=== PATIENT | female | born 1935 | race Caucasian/White ===

== ENCOUNTER 2021-08-15 11:35 | Inpatient (IN) | payer MEDICARE, OTHER ==
[~2021-08-15] VITALS: Ht 162.6 cm; Wt 85.7 kg
--- NOTE | 2021-08-16 18:30 | NUR ---
ADMITTED THE PATIENT VIA AMBULANCE ON A GURNEY FROM [facility]. MALAGASY SPEAKING, FAMILY AT BEDSIDE. BODY ASSESSMENT DONE, PHOTO IN THE CHART. INCISION SITE INTACT, NO BLEEDING IDENTIFIED. BELONGINGS LIST DONE AND SIGNED. ORIENTED PATIENT TO THE ROOM. NO DISTRESS IDENTIFIED. MD MADE AWARE OF THE ADMISSION. WILL CONTINUE TO MONITOR PATIENT.
[2021-08-16 18:38] VITALS: BP 169/75
[2021-08-16] MEDS ORDERED: Z GUARD REMEDY PASTE 57 GM TUBE TOP PRN (19:00)
[2021-08-16] MEDS ORDERED: CLOT30CR24 TP (19:49)
[2021-08-16] MEDS ORDERED: ENOX30DI5 SQ (19:49)
[2021-08-16] MEDS ORDERED: TRIA60LO14 TP (19:49)
[2021-08-16] MEDS ORDERED: NEBI5TAB8 PO (19:49)
[2021-08-16] MEDS ORDERED: IBUP-1953 PO (19:49)
[2021-08-16] MEDS ORDERED: ASPI81TA31 PO (19:49)
[2021-08-16] MEDS ORDERED: TRAM50TA2 PO (19:49)
[2021-08-16] MEDS ORDERED: ATOR20TA PO (19:49)
[2021-08-16] MEDS ORDERED: GABA-532 PO (19:49)
[2021-08-16] MEDS ORDERED: SITA1TAB2 PO (19:49)
[2021-08-16] MEDS ORDERED: FERR325T28 PO (19:49)
[2021-08-16] MEDS ORDERED: SENN-18 PO (19:49)
[2021-08-16] MEDS ORDERED: FURO-151 PO (19:49)
[2021-08-16 20:00] VITALS: BP 166/52
[2021-08-17 04:00] VITALS: BP 141/60
--- NOTE | 2021-08-17 06:29 | NUR ---
Patient denies pain during the shift. no concerns identified. All due meds given. kept call light within reach. Frequent checks done. Will endorse to the next shift for continuity of care.
[2021-08-17 07:30] VITALS: BP 129/59
[2021-08-17] MEDS: OXYCODONE/APAP 5-325 MG TABLET PO PRN (09:24)
--- NOTE | 2021-08-17 10:52 | NUR ---
WOUND CARE CONSULT: PT PRESENTS WITH MULTIPLE SKIN ISSUES, PRESENT ON ADMISSION INCLUDING LEFT HEEL INTACT DEEP TISSUE INJURY, SACRAL INTACT DEEP TISSUE INJURY, RT LATERAL FOOT DRY WOUND AND RASH WITH OPEN SKIN TO ABDOMINAL/GROIN FOLDS, RASH/REDNESS TO RT BREASTFOLD. RECOMMENDATIONS MADE FOR SKIN PROTECTION AND WOUND CARE. DISCUSSED WITH NURSING STAFF. DEFER TO DPM (DR NIETO) FOR LOWER EXTREMITIES. MD IN AGREEMENT WITH PLAN OF CARE. Addendum: 08/17/21 at 1054 by PRATEEK GUZMAN RN Amended: Links added. Addendum: 08/17/21 at 1102 by PRATEEK GUZMAN RN PER PT'S DAUGHTER, PT HAD SACRAL DTI BEFORE ADMISSION TO [facility] FOR HIP SURGERY. Addendum: 08/17/21 at 1108 by PRATEEK GUZMAN RN FIRST STEP LOW AIRLOSS MATTRESS IS ON ORDER.
--- NOTE | 2021-08-17 15:33 | NUR ---
INTERDISCIPLINARY TEAM CONFERENCE
[2021-08-17 15:53] VITALS: BP 157/65
[2021-08-17] MEDS ORDERED: IBUPROFEN 200 MG TABLET PO PRN (16:00)
[2021-08-17] MEDS ORDERED: TRAMADOL HCL 50 MG TABLET PO PRN (16:00)
[2021-08-17] MEDS ORDERED: DEXTROSE 50% 50 ML DISP.SYRIN IV PRN (16:15)
[2021-08-17] MEDS ORDERED: TRIA15CR2 TP ×2 (16:18→16:24)
[2021-08-17] MEDS: BLOOD SUGAR DIAGNOSTIC 1 EACH STRIP VI SCH ×2 (16:30→20:31)
[2021-08-17] MEDS ORDERED: TRIAMCINOLONE ACET 0.1% CREAM 15 GM TUBE TOP PRN (16:45)
[2021-08-17] MEDS: GABAPENTIN 100 MG CAPSULE PO SCH (18:29)
[2021-08-17] MEDS: INSULIN REGULAR, HUMAN 300 UNIT/3 ML VIAL SQ PRN (18:31)
[2021-08-17] MEDS: CLOTRIMAZOLE 1% CREAM 30 GM TUBE TOP SCH (18:33)
[2021-08-17] MEDS: CLOTRIMAZOLE 1% CREAM 30 GM TUBE TP SCH (18:33)
[2021-08-17] MEDS: METOPROLOL TARTRATE 25 MG TABLET PO SCH (18:46)
--- NOTE | 2021-08-17 19:23 | NUR ---
Pt is a/o x 4 Luxembourgish speaking only. Pt is on room air saturating at 98%. She is bedbound/ wheel chair bound. Pt has webster catheter, incontinent x 2 with diaper. last BM was 2 days ago. Maximum assistance with transfer from bed to wheel chair. Non weight bearing on right leg due to s/p R intertrochanteric fracture. Consent signed by son and translated to pt for wound debridement. Pt last vitals: BP 162/ 75 pre metoprolol administration, 98% room air, rr 12 HR 90. Will endorse pt to shift nurse manager.
[2021-08-17 20:00] VITALS: BP 162/64
[2021-08-17] MEDS: ATORVASTATIN 20 MG TABLET PO SCH (20:24)
[2021-08-17] MEDS: ENOXAPARIN SODIUM 30 MG/0.3 ML DISP.SYRIN SQ SCH (20:28)
[2021-08-18 04:00] VITALS: BP 134/51
[2021-08-18] MEDS: BLOOD SUGAR DIAGNOSTIC 1 EACH STRIP VI SCH ×4 (05:34→21:26)
--- NOTE | 2021-08-18 06:29 | NUR ---
Slept well. No complaint presented all night. No significant event reported. Continue current plan of care. VS stable.
[2021-08-18 07:48] VITALS: BP 156/67
[2021-08-18] MEDS: GABAPENTIN 100 MG CAPSULE PO SCH ×2 (08:57→18:32)
[2021-08-18] MEDS: ASPIRIN 81 MG TAB.CHEW PO SCH (08:57)
[2021-08-18] MEDS: FERROUS SULFATE 325 MG TABEC PO SCH (08:57)
[2021-08-18] MEDS: OXYCODONE/APAP 5-325 MG TABLET PO PRN (08:58)
[2021-08-18] MEDS: FUROSEMIDE 40 MG TABLET PO SCH (08:58)
[2021-08-18] MEDS: LINAGLIPTIN 5 MG TABLET PO SCH (08:58)
[2021-08-18] MEDS: CLOTRIMAZOLE 1% CREAM 30 GM TUBE TOP SCH ×2 (08:58→17:00)
[2021-08-18] MEDS: CLOTRIMAZOLE 1% CREAM 30 GM TUBE TP SCH ×2 (08:58→17:00)
[2021-08-18] MEDS ORDERED: Medication Not On Formulary EA (Nebivolol Hcl (Bystolic) 5 MG) PO SCH (09:00)
[2021-08-18] MEDS ORDERED: METFORMIN HCL 500 MG TABLET PO SCH (09:00)
[2021-08-18 09:04] VITALS: BP 158/65
[2021-08-18] MEDS: METOPROLOL TARTRATE 25 MG TABLET PO SCH ×2 (09:04→18:34)
[2021-08-18] MEDS: INSULIN REGULAR, HUMAN 300 UNIT/3 ML VIAL SQ PRN (12:03)
[2021-08-18 13:02] LABS: CREATININE 1.3 mg/dL (0.6-1.3); POTASSIUM 4.4 mmol/L (3.5-5.1)
[2021-08-18 13:11] LABS: HEMATOCRIT 30.2 % (31.2-41.9); MEAN CORPUSCULAR HEMOGLOBIN 28.3 uug (24.7-32.8); MEAN CORPUSCULAR VOLUME 86.3 fL (75.5-95.3); PLATELET COUNT (AUTO) 215 K/uL (179-408)
[2021-08-18 15:21] VITALS: BP 133/64
[2021-08-18] MEDS: METFORMIN HCL 500 MG TABLET PO SCH (18:32)
--- NOTE | 2021-08-18 19:10 | NUR ---
Pt is a/o x 4, danish speaking only. She is stable on room air, no complaint of pain, discomfort, no signs of acute distress. Pt is cooperative with care and medications. Pt is currently sitting on wheelchair. Miramontes catheter draining well, no BM during shift. Family currently at bedside. DVT pump delivered, air mattress delivered, will put in place. Comfort measures provided, call light in reach. Will endorse pt to ship scraper RN.
--- NOTE | 2021-08-18 19:25 | NUR ---
Received patient sitting on wheelchair. AOx4. Kittitian speaking. Daughter at bedside. No acute distress noted at this time. Transferred patient from wheelchair to bed via 1 person assist. Pt currently on air mattress. ordered for DVT pumps, however, no machine is available at this time. Will call central supply. Safety and comfort measures initiated. Call light button and bedside table within reach, bed on lock and side rails x2 up. Will continue to monitor.
[2021-08-18 20:00] VITALS: BP 131/50
[2021-08-18] MEDS: ATORVASTATIN 20 MG TABLET PO SCH (21:08)
[2021-08-18] MEDS: ENOXAPARIN SODIUM 30 MG/0.3 ML DISP.SYRIN SQ SCH (21:11)
--- NOTE | 2021-08-18 21:30 | NUR ---
Accuchek taken, BS of 105mg/dl, insulin not needed.
[2021-08-19 04:00] VITALS: BP 146/55
[2021-08-19] MEDS: BLOOD SUGAR DIAGNOSTIC 1 EACH STRIP VI SCH ×4 (07:10→20:26)
--- NOTE | 2021-08-19 07:39 | NUR ---
Patient slept through the night. No acute distress noted at this time. All due medications were given as ordered. Accuchek done, BS of 111mg/dl. Breast fold rash and Abdominal fold cleansed with soap and water and kept dry. Sacrum and heels cleansed and covered with mepilex. Safety and comfort measures maintained. Will endorse to day shift nurse.\
[2021-08-19 07:44] VITALS: BP 162/60
[2021-08-19] MEDS: OXYCODONE/APAP 5-325 MG TABLET PO PRN (08:51)
[2021-08-19] MEDS: LINAGLIPTIN 5 MG TABLET PO SCH (08:51)
[2021-08-19] MEDS: GABAPENTIN 100 MG CAPSULE PO SCH ×2 (08:51→18:06)
[2021-08-19] MEDS: METFORMIN HCL 500 MG TABLET PO SCH ×2 (08:51→18:05)
[2021-08-19] MEDS: FERROUS SULFATE 325 MG TABEC PO SCH (08:51)
[2021-08-19] MEDS: FUROSEMIDE 40 MG TABLET PO SCH (08:52)
[2021-08-19] MEDS: ASPIRIN 81 MG TAB.CHEW PO SCH (08:52)
[2021-08-19] MEDS: METOPROLOL TARTRATE 25 MG TABLET PO SCH ×2 (08:53→18:06)
[2021-08-19] MEDS: CLOTRIMAZOLE 1% CREAM 30 GM TUBE TOP SCH ×2 (08:58→18:07)
[2021-08-19] MEDS ORDERED: levoFLOXacin 500 MG TABLET PO SCH (11:00)
[2021-08-19] MEDS: CLOTRIMAZOLE 1% CREAM 30 GM TUBE TP SCH ×2 (11:40→18:08)
[2021-08-19] MEDS: levoFLOXacin 750 MG TABLET PO SCH (11:41)
--- NOTE | 2021-08-19 12:33 | NUR ---
INDIVIDUALIZED PLAN OF CARE
[2021-08-19 16:16] VITALS: BP 128/48
[2021-08-19 18:37] LABS: *BILIRUBIN,URIN NEGATIVE (NEGATIVE); *BLOOD, URINE NEGATIVE (NEGATIVE); *CLARITY,URINE CLEAR (CLEAR); *COLOR,URINE LIGHT YELLOW (YELLOW); *KETONES,URINE NEGATIVE (NEGATIVE); *UROBILINOGEN,URINE 0.2 E.U./dl (NORMAL); LEUKOCYTE ESTERASE ,URINE 1+ (NEGATIVE); NITRITE, URINE NEGATIVE (NEGATIVE); UGLUCOSE NEGATIVE (NEGATIVE)
[2021-08-19 20:06] LABS: RBC,URINE 0-3 /HPF (0-3); SQUAMOUS EPITHELIAL CELL,UR FEW /HPF (NONE SEEN)
[2021-08-19] MEDS: ATORVASTATIN 20 MG TABLET PO SCH (20:25)
[2021-08-19] MEDS: INSULIN REGULAR, HUMAN 300 UNIT/3 ML VIAL SQ PRN (20:26)
[2021-08-19] MEDS: ENOXAPARIN SODIUM 30 MG/0.3 ML DISP.SYRIN SQ SCH (20:27)
[2021-08-19 20:47] VITALS: BP 128/52
--- NOTE | 2021-08-19 20:48 | NUR ---
Received pt resting in bed. AAO x4, Lithuanian speaking, able to make needs known. Son at bedside. No acute distress noted. Denies pain/ discomfort. Due meds given as ordered. Blood sugar of 122, no insulin coverage given as per sliding scale. Safety measures maintained. Call light and personal items within reach. Will continue to monitor.
[2021-08-19] MEDS: SENNOSIDES 1 TABLET PO PRN (22:16)
--- NOTE | 2021-08-19 23:33 | NUR ---
Senokot given for constipation. Skin care rendered. Turned and repositioned, both heels offloaded.
[2021-08-20 04:50] VITALS: BP 131/56
[2021-08-20] MEDS: BLOOD SUGAR DIAGNOSTIC 1 EACH STRIP VI SCH ×4 (06:43→20:20)
[2021-08-20 07:43] VITALS: BP 140/55
[2021-08-20] MEDS: FUROSEMIDE 40 MG TABLET PO SCH (08:23)
[2021-08-20] MEDS: GABAPENTIN 100 MG CAPSULE PO SCH ×2 (08:23→16:33)
[2021-08-20] MEDS: ASPIRIN 81 MG TAB.CHEW PO SCH (08:23)
[2021-08-20] MEDS: FERROUS SULFATE 325 MG TABEC PO SCH (08:24)
[2021-08-20] MEDS: LINAGLIPTIN 5 MG TABLET PO SCH (08:24)
[2021-08-20] MEDS: METFORMIN HCL 500 MG TABLET PO SCH ×2 (08:24→16:33)
[2021-08-20] MEDS: CLOTRIMAZOLE 1% CREAM 30 GM TUBE TOP SCH ×2 (08:24→16:34)
[2021-08-20] MEDS: METOPROLOL TARTRATE 25 MG TABLET PO SCH ×2 (08:25→16:34)
[2021-08-20] MEDS: CLOTRIMAZOLE 1% CREAM 30 GM TUBE TP SCH ×2 (08:26→16:35)
[2021-08-20] MEDS: OXYCODONE/APAP 5-325 MG TABLET PO PRN ×2 (08:58→20:23)
[2021-08-20] MEDS: TRIAMCINOLONE ACET 0.1% CREAM 15 GM TUBE TP SCH (11:11)
[2021-08-20] MEDS: MAGNESIUM HYDROXIDE 30 ML LIQUID UDC PO PRN (11:36)
[2021-08-20] MEDS: DOCUSATE SODIUM 100 MG CAPSULE PO SCH ×2 (11:37→20:20)
[2021-08-20] MEDS: ONDANSETRON ODT 4 MG TAB.RAPDIS SL PRN (11:37)
[2021-08-20 15:28] VITALS: BP 118/33
--- NOTE | 2021-08-20 19:43 | NUR ---
no acute distress noted. skin care provided as ordered, turned and repositioned.
[2021-08-20 20:18] VITALS: BP 126/57
[2021-08-20] MEDS: ENOXAPARIN SODIUM 30 MG/0.3 ML DISP.SYRIN SQ SCH (20:18)
[2021-08-20] MEDS: ATORVASTATIN 20 MG TABLET PO SCH (20:19)
[2021-08-20] MEDS: INSULIN REGULAR, HUMAN 300 UNIT/3 ML VIAL SQ PRN (20:23)
--- NOTE | 2021-08-20 21:30 | NUR ---
Received pt resting in bed. AAO x4. Romansh speaking, able to make needs known. No acute distress noted. C/o 6/10 pain on right hip surgical site. PRN pain med given. No s/s of infection on right hip. Daughter at bedside. Due meds given as ordered. Air mattress in place. Turned and repositioned, both heels offloaded. Skin care rendered. Safety measures maintained. Call light and personal items within reach. Will continue to monitor.
[2021-08-21 04:18] VITALS: BP 112/45
[2021-08-21] MEDS: BLOOD SUGAR DIAGNOSTIC 1 EACH STRIP VI SCH ×4 (06:41→20:51)
[2021-08-21 07:52] VITALS: BP 115/44
[2021-08-21] MEDS: METFORMIN HCL 500 MG TABLET PO SCH ×2 (08:38→17:21)
[2021-08-21] MEDS: LINAGLIPTIN 5 MG TABLET PO SCH (08:38)
[2021-08-21] MEDS: GABAPENTIN 100 MG CAPSULE PO SCH ×2 (08:38→17:22)
[2021-08-21] MEDS: FERROUS SULFATE 325 MG TABEC PO SCH (08:39)
[2021-08-21] MEDS: FUROSEMIDE 40 MG TABLET PO SCH (08:39)
[2021-08-21] MEDS: ASPIRIN 81 MG TAB.CHEW PO SCH (08:39)
[2021-08-21] MEDS: METOPROLOL TARTRATE 25 MG TABLET PO SCH ×2 (08:41→17:21)
[2021-08-21] MEDS: TRIAMCINOLONE ACET 0.1% CREAM 15 GM TUBE TP SCH (08:43)
[2021-08-21] MEDS: CLOTRIMAZOLE 1% CREAM 30 GM TUBE TOP SCH ×2 (08:43→17:22)
[2021-08-21] MEDS: OXYCODONE/APAP 5-325 MG TABLET PO PRN (08:47)
[2021-08-21] MEDS: CLOTRIMAZOLE 1% CREAM 30 GM TUBE TP SCH ×2 (09:47→17:22)
[2021-08-21] MEDS: levoFLOXacin 750 MG TABLET PO SCH (11:19)
[2021-08-21] MEDS: INSULIN REGULAR, HUMAN 300 UNIT/3 ML VIAL SQ PRN ×2 (11:26→20:51)
[2021-08-21] MEDS: SENNOSIDES 1 TABLET PO PRN (14:10)
[2021-08-21 17:37] VITALS: BP 112/69
--- NOTE | 2021-08-21 18:17 | NUR ---
Patient resting in bed. AOx3-4. On room air. No signs of acute distress. Compliant with medications and care. Wound care treatment done as ordered. Patient complained of pain on right hip, Percocet PRN given as ordered and patient expressed relief. Patient complained of constipation, Senokot PRN given and patient tolerated well. Needs anticipated and met. Bed locked and in low position. Call light within reach. Will endorse to incoming shift for continuity of care.
[2021-08-21] MEDS: DOCUSATE SODIUM 100 MG CAPSULE PO SCH (20:48)
[2021-08-21] MEDS: ATORVASTATIN 20 MG TABLET PO SCH (20:48)
[2021-08-21] MEDS: ENOXAPARIN SODIUM 30 MG/0.3 ML DISP.SYRIN SQ SCH (20:55)
--- NOTE | 2021-08-21 21:09 | NUR ---
Received pt resting in bed. AAO x4. Urdu speaking, able to make needs known. No acute distress noted. Denies pain/ discomfort. No s/s of infection on right hip surgical site. Due meds given as ordered. Air mattress in place. Turned and repositioned, both heels offloaded. Miramontes catheter draining well with yellow colored urine. Skin care rendered. Safety measures maintained. Call light and personal items within reach. Will continue to monitor.
[2021-08-21 22:18] VITALS: BP 122/48
[2021-08-22 04:00] VITALS: BP 124/55
[2021-08-22] MEDS: BLOOD SUGAR DIAGNOSTIC 1 EACH STRIP VI SCH ×4 (06:43→21:05)
[2021-08-22 08:00] VITALS: BP 142/48
[2021-08-22] MEDS: ASPIRIN 81 MG TAB.CHEW PO SCH (08:19)
[2021-08-22] MEDS: LINAGLIPTIN 5 MG TABLET PO SCH (08:19)
[2021-08-22] MEDS: METFORMIN HCL 500 MG TABLET PO SCH ×2 (08:19→17:09)
[2021-08-22] MEDS: FUROSEMIDE 40 MG TABLET PO SCH (08:20)
[2021-08-22] MEDS: GABAPENTIN 100 MG CAPSULE PO SCH ×2 (08:20→17:09)
[2021-08-22] MEDS: FERROUS SULFATE 325 MG TABEC PO SCH (08:20)
[2021-08-22] MEDS: METOPROLOL TARTRATE 25 MG TABLET PO SCH ×2 (08:21→17:12)
[2021-08-22] MEDS: CLOTRIMAZOLE 1% CREAM 30 GM TUBE TP SCH (08:22)
[2021-08-22] MEDS: CLOTRIMAZOLE 1% CREAM 30 GM TUBE TOP SCH ×2 (08:22→17:09)
--- NOTE | 2021-08-22 08:27 | NUR ---
Pt received resting in bed. A&Ox3. On room air. VSS. Miramontes catheter draining yellow, clear urine. Morning meds administered as due. Tolerated well. No signs of acute distress noted. No c/o pain verbalized. BS 90. Assisted with AM care. Safety measures maintained. Will continue to monitor
--- NOTE | 2021-08-22 11:06 | NUR ---
WOUND CARE FOLLOW UP: PT SEEN FOR RE-EVALUATION OF SACRAL DEEP TISSUE INJURY WHICH IS NOW IN EVOLUTION, PRESENT ON ADMISSION. RECOMMENDATIONS MADE FOR SKIN PROTECTION AND WOUND CARE. DISCUSSED WITH NURSING AND P.T. STAFF. WOUND TREATMENT ORDERS UPDATED AND DISCUSSED WITH NURSING STAFF. RASH RESOLVING TO RT BREASTFOLD, ABDOMINAL/GROIN FOLD AREA (PRESENT ON ADMISSION. LEFT HEEL DEEP TISSUE INJURY REMAINS INTACT. DPM FOLLOWING PT FOR LOWER EXTREMITIES. PT IS ON FIRST STEP [facility]. IN AGREEMENT WITH PLAN OF CARE. Addendum: 08/22/21 at 1108 by PRATEEK GUZMAN RN Amended: Links added.
[2021-08-22 16:00] VITALS: BP 136/45
[2021-08-22] MEDS: INSULIN REGULAR, HUMAN 300 UNIT/3 ML VIAL SQ PRN (17:54)
--- NOTE | 2021-08-22 19:20 | NUR ---
Awake, watching TV during initial rounds. No s/s of respiratory distress. Denies any pain/discomforts at this time. Safety measures and fall prevention maintained. Continue care as planned.
[2021-08-22 20:01] VITALS: BP 128/62
[2021-08-22] MEDS: ATORVASTATIN 20 MG TABLET PO SCH (21:00)
[2021-08-22] MEDS: DOCUSATE SODIUM 100 MG CAPSULE PO SCH (21:00)
[2021-08-22] MEDS: ENOXAPARIN SODIUM 30 MG/0.3 ML DISP.SYRIN SQ SCH (21:03)
[2021-08-23] MEDS: MAGNESIUM HYDROXIDE 30 ML LIQUID UDC PO PRN (00:30)
--- NOTE | 2021-08-23 00:30 | NUR ---
MOM given as needed and ordered due to complaint of constipation. Patient with visible hard stools, having a hard time pushing it out. Slight manual disimpaction performed. Patient tolerated procedure well. Will monitor.
[2021-08-23 04:33] VITALS: BP 122/56
[2021-08-23] MEDS: BLOOD SUGAR DIAGNOSTIC 1 EACH STRIP VI SCH ×3 (06:01→16:41)
--- NOTE | 2021-08-23 06:31 | NUR ---
Still having some urge to defecate, Prune juice given this time. Will monitor and endorse accordingly.
[2021-08-23 08:00] VITALS: BP 150/66
[2021-08-23] MEDS: ASPIRIN 81 MG TAB.CHEW PO SCH (08:29)
[2021-08-23] MEDS: FUROSEMIDE 40 MG TABLET PO SCH (08:29)
[2021-08-23] MEDS: GABAPENTIN 100 MG CAPSULE PO SCH ×2 (08:29→17:06)
[2021-08-23] MEDS: METFORMIN HCL 500 MG TABLET PO SCH ×2 (08:29→17:06)
[2021-08-23] MEDS: FERROUS SULFATE 325 MG TABEC PO SCH (08:29)
[2021-08-23] MEDS: LINAGLIPTIN 5 MG TABLET PO SCH (08:29)
[2021-08-23] MEDS: CLOTRIMAZOLE 1% CREAM 30 GM TUBE TOP SCH ×2 (08:30→17:07)
[2021-08-23] MEDS: METOPROLOL TARTRATE 25 MG TABLET PO SCH ×2 (08:30→17:07)
--- NOTE | 2021-08-23 08:30 | NUR ---
Patient in bed awake and resting in bed. Nauruan speaking. On room air. No signs of acute distress noted. Miramontes catheter draining clear, yellow urine. AM meds administered as due. Medicated with PRN percocet for pain 05/31 prior to therapy. Assisted with AM care. Safety measures maintained, call light within reach. Will continue to monitor
[2021-08-23] MEDS: OXYCODONE/APAP 5-325 MG TABLET PO PRN (08:31)
[2021-08-23] MEDS: levoFLOXacin 750 MG TABLET PO SCH (11:25)
[2021-08-23] MEDS: INSULIN REGULAR, HUMAN 300 UNIT/3 ML VIAL SQ PRN (11:57)
[2021-08-23] MEDS: ONDANSETRON ODT 4 MG TAB.RAPDIS SL PRN (12:48)
--- NOTE | 2021-08-23 12:50 | NUR ---
Patient noted to have nausea. PRN Zofran administered, will continue to monitor
--- NOTE | 2021-08-23 15:13 | NUR ---
Patient up in chair, right hip observed to be internally rotated. Assisted back to bed. Right hip warm to touch, swelling noted. Dr. Stern made aware. Follow up xray ordered
[2021-08-23 16:00] VITALS: BP 135/66
[2021-08-23] MEDS: GLUCERNA SHAKE VANILLA 237 ML CAN PO SCH (17:06)
[2021-08-23] MEDS: ARGININE/GLUTAMINE/CALCIUM BMB 1 EACH POWD.PACK PO SCH (17:07)
[2021-08-23 20:00] VITALS: BP 123/49
[2021-08-23] MEDS: ATORVASTATIN 20 MG TABLET PO SCH (20:31)
[2021-08-23] MEDS: DOCUSATE SODIUM 100 MG CAPSULE PO SCH (20:31)
[2021-08-23] MEDS: ENOXAPARIN SODIUM 30 MG/0.3 ML DISP.SYRIN SQ SCH (20:32)
[2021-08-24 04:00] VITALS: BP 128/38
[2021-08-24 06:30] LABS: HEMATOCRIT 28.1 % (31.2-41.9); MEAN CORPUSCULAR HEMOGLOBIN 27.5 uug (24.7-32.8); MEAN CORPUSCULAR VOLUME 86.4 fL (75.5-95.3); PLATELET COUNT (AUTO) 418 K/uL (179-408)
[2021-08-24 06:54] LABS: THYROID STIMULATING HORMONE 2.755 mIU/mL (0.358-3.740)
[2021-08-24 07:08] LABS: ALANINE AMINOTRANSFERASE 29 U/L (14-59); ALKALINE PHOSPHATASE 95 U/L (50-136); ASPARTATE AMINOTRANSFERASE 38 U/L (15-37); BILIRUBIN,TOTAL 0.8 mg/dL (0.2-1.0); CARBON DIOXIDE 33 mmol/L (21-32); CHLORIDE 101 mmol/L (98-107); CHOLESTEROL 114 mg/dL (<200); CREATININE 1.5 mg/dL (0.6-1.3); GLUCOSE 108 mg/dL (74-106); HDL CHOLESTEROL 34 mg/dL (40-60); PHOSPHOROUS 2.9 mg/dL (2.5-4.9); POTASSIUM 4.3 mmol/L (3.5-5.1); TOTAL PROTEIN, SERUM 5.9 g/dL (6.4-8.2); TRIGLYCERIDES 117 MG/DL (30-150); UREA NITROGEN, BLOOD 35 mg/dL (7-18)
[2021-08-24 07:30] VITALS: BP 98/52
[2021-08-24] MEDS: FERROUS SULFATE 325 MG TABEC PO SCH (08:28)
[2021-08-24] MEDS: ASPIRIN 81 MG TAB.CHEW PO SCH (08:28)
[2021-08-24] MEDS: GABAPENTIN 100 MG CAPSULE PO SCH ×2 (08:29→17:59)
[2021-08-24] MEDS: METFORMIN HCL 500 MG TABLET PO SCH ×2 (08:29→17:59)
[2021-08-24] MEDS: LINAGLIPTIN 5 MG TABLET PO SCH (08:29)
[2021-08-24] MEDS: FUROSEMIDE 40 MG TABLET PO SCH (08:30)
[2021-08-24] MEDS: OXYCODONE/APAP 5-325 MG TABLET PO PRN (08:38)
[2021-08-24] MEDS: GLUCERNA SHAKE VANILLA 237 ML CAN PO SCH ×2 (09:43→18:08)
[2021-08-24] MEDS: ARGININE/GLUTAMINE/CALCIUM BMB 1 EACH POWD.PACK PO SCH ×2 (09:45→18:00)
[2021-08-24] MEDS: METOPROLOL TARTRATE 25 MG TABLET PO SCH ×2 (09:52→18:05)
[2021-08-24] MEDS: CLOTRIMAZOLE 1% CREAM 30 GM TUBE TOP SCH ×2 (09:54→17:59)
--- NOTE | 2021-08-24 15:00 | NUR ---
INTERDISCIPLINARY TEAM CONFERENCE
[2021-08-24 15:16] LABS: *BILIRUBIN,URIN NEGATIVE (NEGATIVE); *BLOOD, URINE NEGATIVE (NEGATIVE); *CLARITY,URINE CLEAR (CLEAR); *COLOR,URINE YELLOW (YELLOW); *KETONES,URINE NEGATIVE (NEGATIVE); *UROBILINOGEN,URINE 0.2 E.U./dl (NORMAL); LEUKOCYTE ESTERASE ,URINE NEGATIVE (NEGATIVE); NITRITE, URINE NEGATIVE (NEGATIVE); UGLUCOSE NEGATIVE (NEGATIVE)
[2021-08-24 16:00] VITALS: BP 134/45
[2021-08-24 20:00] VITALS: BP 129/62
[2021-08-24] MEDS: ATORVASTATIN 20 MG TABLET PO SCH (20:47)
[2021-08-24] MEDS: DOCUSATE SODIUM 100 MG CAPSULE PO SCH (20:47)
[2021-08-24] MEDS: ENOXAPARIN SODIUM 30 MG/0.3 ML DISP.SYRIN SQ SCH (20:48)
--- NOTE | 2021-08-24 21:43 | NUR ---
Received resident awake on bed with no respiratory distress noted, on room air. Denies pain and discomfort at this time. FC intact, draining well with yellowish urine. Wound care and dressing changed on all listed skin conditions. Due medications given on time and tolerated well. All needs attended. Call light placed within reach. Will continue to monitor.
[2021-08-25 04:00] VITALS: BP 134/61
[2021-08-25 07:52] VITALS: BP 137/62
[2021-08-25] MEDS: METOPROLOL TARTRATE 25 MG TABLET PO SCH ×2 (09:00→17:00)
[2021-08-25] MEDS: FERROUS SULFATE 325 MG TABEC PO SCH (09:38)
[2021-08-25] MEDS: ASPIRIN 81 MG TAB.CHEW PO SCH (09:38)
[2021-08-25] MEDS: METFORMIN HCL 500 MG TABLET PO SCH ×2 (09:38→16:54)
[2021-08-25] MEDS: GABAPENTIN 100 MG CAPSULE PO SCH ×2 (09:38→16:54)
[2021-08-25] MEDS: LINAGLIPTIN 5 MG TABLET PO SCH (09:38)
[2021-08-25] MEDS: FUROSEMIDE 40 MG TABLET PO SCH (09:38)
[2021-08-25] MEDS: CLOTRIMAZOLE 1% CREAM 30 GM TUBE TOP SCH ×2 (09:48→16:55)
[2021-08-25] MEDS: ARGININE/GLUTAMINE/CALCIUM BMB 1 EACH POWD.PACK PO SCH ×2 (09:49→16:55)
[2021-08-25] MEDS: GLUCERNA SHAKE VANILLA 237 ML CAN PO SCH ×2 (09:49→16:55)
[2021-08-25] MEDS: levoFLOXacin 750 MG TABLET PO SCH (11:58)
[2021-08-25] MEDS: OXYCODONE/APAP 5-325 MG TABLET PO PRN (12:23)
--- NOTE | 2021-08-25 14:00 | NUR ---
Patient remains alert, not in any form of distress on room air. Patient compliant with medications and care. She complained of pain on right hip, given PRN pain medication as ordered with noted relief. Miramontes catheter in place and patent draining clear yellow urine. Family at bedside. Patient participated with PT/OT. Assisted with her needs promptly. Call light and frequently used items placed within patient's reach.
[2021-08-25 16:03] VITALS: BP 114/46
[2021-08-25 20:10] VITALS: BP 129/40
[2021-08-25] MEDS: ATORVASTATIN 20 MG TABLET PO SCH (20:57)
[2021-08-25] MEDS: DOCUSATE SODIUM 100 MG CAPSULE PO SCH (20:57)
[2021-08-25] MEDS: ENOXAPARIN SODIUM 30 MG/0.3 ML DISP.SYRIN SQ SCH (21:00)
[2021-08-26 04:10] VITALS: BP 120/36
[2021-08-26 08:06] VITALS: BP 126/50
[2021-08-26] MEDS: OXYCODONE/APAP 5-325 MG TABLET PO PRN (09:00)
[2021-08-26] MEDS: METFORMIN HCL 500 MG TABLET PO SCH ×2 (09:00→18:27)
[2021-08-26] MEDS: ASPIRIN 81 MG TAB.CHEW PO SCH (09:00)
[2021-08-26] MEDS: LINAGLIPTIN 5 MG TABLET PO SCH (09:12)
[2021-08-26] MEDS: FUROSEMIDE 40 MG TABLET PO SCH (09:12)
[2021-08-26] MEDS: FERROUS SULFATE 325 MG TABEC PO SCH (09:13)
[2021-08-26] MEDS: GLUCERNA SHAKE VANILLA 237 ML CAN PO SCH ×2 (09:13→18:27)
[2021-08-26] MEDS: METOPROLOL TARTRATE 25 MG TABLET PO SCH ×2 (09:13→18:29)
[2021-08-26] MEDS: GABAPENTIN 100 MG CAPSULE PO SCH ×2 (09:13→18:28)
[2021-08-26] MEDS: ARGININE/GLUTAMINE/CALCIUM BMB 1 EACH POWD.PACK PO SCH ×2 (09:14→18:27)
[2021-08-26] MEDS: CLOTRIMAZOLE 1% CREAM 30 GM TUBE TOP SCH ×2 (09:14→18:28)
[2021-08-26 16:26] VITALS: BP 119/54
[2021-08-26 20:23] VITALS: BP 133/49
[2021-08-26] MEDS: ATORVASTATIN 20 MG TABLET PO SCH (20:44)
[2021-08-26] MEDS: DOCUSATE SODIUM 100 MG CAPSULE PO SCH (20:45)
[2021-08-26] MEDS: ENOXAPARIN SODIUM 30 MG/0.3 ML DISP.SYRIN SQ SCH (20:47)
--- NOTE | 2021-08-26 23:26 | NUR ---
Resting in bed upon initial rounds watching TV. AAOx4 Needs attended. VSS. S/P Right intamedullary nailing. Right hip with andres [employer]. On pain management. Denies any pain at this time. Tolerated po meds well. On Lovenox for VTE. Will monitor patient. Kept comfortable. Siderails up for safety. No acute distress noted. Fall precautions maintained. Siderails up for safety.
[2021-08-27 04:23] VITALS: BP 116/48
[2021-08-27 07:33] LABS: HEMATOCRIT 27.3 % (31.2-41.9); MEAN CORPUSCULAR HEMOGLOBIN 28.5 uug (24.7-32.8); MEAN CORPUSCULAR VOLUME 85.8 fL (75.5-95.3); PLATELET COUNT (AUTO) 536 K/uL (179-408)
[2021-08-27 07:41] LABS: ALANINE AMINOTRANSFERASE 27 U/L (14-59); ALKALINE PHOSPHATASE 87 U/L (50-136); ASPARTATE AMINOTRANSFERASE 26 U/L (15-37); BILIRUBIN,TOTAL 0.6 mg/dL (0.2-1.0); CARBON DIOXIDE 32 mmol/L (21-32); CHLORIDE 104 mmol/L (98-107); CREATININE 1.5 mg/dL (0.6-1.3); GLUCOSE 103 mg/dL (74-106); MAGNESIUM 2.1 mg/dL (1.8-2.4); PHOSPHOROUS 3.9 mg/dL (2.5-4.9); POTASSIUM 4.4 mmol/L (3.5-5.1); TOTAL PROTEIN, SERUM 5.6 g/dL (6.4-8.2); UREA NITROGEN, BLOOD 36 mg/dL (7-18)
[2021-08-27 08:15] VITALS: BP 139/48
[2021-08-27] MEDS: ASPIRIN 81 MG TAB.CHEW PO SCH (08:18)
[2021-08-27] MEDS: LINAGLIPTIN 5 MG TABLET PO SCH (08:18)
[2021-08-27] MEDS: GABAPENTIN 100 MG CAPSULE PO SCH ×2 (08:18→16:01)
[2021-08-27] MEDS: METFORMIN HCL 500 MG TABLET PO SCH ×2 (08:18→16:01)
[2021-08-27] MEDS: ARGININE/GLUTAMINE/CALCIUM BMB 1 EACH POWD.PACK PO SCH ×2 (08:19→16:02)
[2021-08-27] MEDS: METOPROLOL TARTRATE 25 MG TABLET PO SCH ×2 (08:19→16:01)
[2021-08-27] MEDS: FERROUS SULFATE 325 MG TABEC PO SCH (08:19)
[2021-08-27] MEDS: FUROSEMIDE 40 MG TABLET PO SCH (08:19)
[2021-08-27] MEDS: CLOTRIMAZOLE 1% CREAM 30 GM TUBE TOP SCH ×2 (08:20→16:02)
[2021-08-27] MEDS: GLUCERNA SHAKE VANILLA 237 ML CAN PO SCH ×2 (08:53→16:02)
[2021-08-27] MEDS: levoFLOXacin 750 MG TABLET PO SCH (10:21)
[2021-08-27 15:03] VITALS: BP 140/66
--- NOTE | 2021-08-27 18:27 | NUR ---
no distress noted during shift, turned, repositioned, heels float on pillows, redness to abdominal fold resolving, continue with care
[2021-08-27] MEDS: ATORVASTATIN 20 MG TABLET PO SCH (20:09)
[2021-08-27] MEDS: DOCUSATE SODIUM 100 MG CAPSULE PO SCH (20:09)
[2021-08-27 20:11] VITALS: BP 99/46
[2021-08-27] MEDS: ENOXAPARIN SODIUM 30 MG/0.3 ML DISP.SYRIN SQ SCH (20:13)
[2021-08-27] MEDS: OXYCODONE/APAP 5-325 MG TABLET PO PRN (21:22)
--- NOTE | 2021-08-28 01:31 | NUR ---
Awake alert and oriented x4Kept comfortable. Needs attended. All due meds given. Repositioned for comfort. Turned to sides. Medicated with Percocet for pain right hip. Relief noted. Miramontes catheter intact draining yellow urine. I & O monitor.Fall precautions maintained. Siderails up for safety.
[2021-08-28 04:34] VITALS: BP 115/48
[2021-08-28 08:00] VITALS: BP 120/78
[2021-08-28] MEDS: METOPROLOL TARTRATE 25 MG TABLET PO SCH ×2 (10:24→16:34)
[2021-08-28] MEDS: GABAPENTIN 100 MG CAPSULE PO SCH ×2 (10:24→16:34)
[2021-08-28] MEDS: FERROUS SULFATE 325 MG TABEC PO SCH (10:24)
[2021-08-28] MEDS: ASPIRIN 81 MG TAB.CHEW PO SCH (10:24)
[2021-08-28] MEDS: FUROSEMIDE 40 MG TABLET PO SCH (10:25)
[2021-08-28] MEDS: LINAGLIPTIN 5 MG TABLET PO SCH (10:25)
[2021-08-28] MEDS: METFORMIN HCL 500 MG TABLET PO SCH ×2 (10:25→16:34)
[2021-08-28] MEDS: ARGININE/GLUTAMINE/CALCIUM BMB 1 EACH POWD.PACK PO SCH ×2 (10:26→16:35)
[2021-08-28] MEDS: CLOTRIMAZOLE 1% CREAM 30 GM TUBE TOP SCH ×2 (10:26→16:35)
[2021-08-28] MEDS: GLUCERNA SHAKE VANILLA 237 ML CAN PO SCH ×2 (10:26→16:35)
[2021-08-28] MEDS: OXYCODONE/APAP 5-325 MG TABLET PO PRN (13:15)
[2021-08-28 16:00] VITALS: BP 122/59
[2021-08-28] MEDS: ATORVASTATIN 20 MG TABLET PO SCH (20:01)
[2021-08-28] MEDS: DOCUSATE SODIUM 100 MG CAPSULE PO SCH (20:01)
--- NOTE | 2021-08-28 20:11 | NUR ---
Received patient up in wheelchair.ALert x4.Denies pain at time .No s/s of distress noted. Assisted patient back to bed with two person assist.Medication given as ordered.No a/ r noted.Rt hip s/p IM nailing surgical site with andres intact.Clean and dry.Area no s/s of infection.Wound care rendered on sacral area ,abd'l folds and breast fold.Tolerated well.Miramontes catheter draining well.Fall precaution and safety measures in place.Reminded patient to use call light for assistance.
[2021-08-28] MEDS: ENOXAPARIN SODIUM 30 MG/0.3 ML DISP.SYRIN SQ SCH (20:17)
[2021-08-28 20:39] VITALS: BP 121/60
[2021-08-29 04:34] VITALS: BP 123/50
[2021-08-29 07:30] VITALS: BP 117/50
[2021-08-29] MEDS: GABAPENTIN 100 MG CAPSULE PO SCH ×2 (08:35→17:01)
[2021-08-29] MEDS: ASPIRIN 81 MG TAB.CHEW PO SCH (08:35)
[2021-08-29] MEDS: FUROSEMIDE 40 MG TABLET PO SCH (08:35)
[2021-08-29] MEDS: METFORMIN HCL 500 MG TABLET PO SCH ×2 (08:35→17:01)
[2021-08-29] MEDS: FERROUS SULFATE 325 MG TABEC PO SCH (08:35)
[2021-08-29] MEDS: LINAGLIPTIN 5 MG TABLET PO SCH (08:35)
[2021-08-29] MEDS: OXYCODONE/APAP 5-325 MG TABLET PO PRN (08:36)
[2021-08-29] MEDS: ARGININE/GLUTAMINE/CALCIUM BMB 1 EACH POWD.PACK PO SCH ×2 (08:39→17:01)
[2021-08-29] MEDS: GLUCERNA SHAKE VANILLA 237 ML CAN PO SCH ×2 (08:39→17:02)
[2021-08-29] MEDS: METOPROLOL TARTRATE 25 MG TABLET PO SCH ×2 (09:00→17:06)
[2021-08-29] MEDS: CLOTRIMAZOLE 1% CREAM 30 GM TUBE TOP SCH ×2 (09:48→17:01)
[2021-08-29 15:22] VITALS: BP 115/53
--- NOTE | 2021-08-29 18:58 | NUR ---
Patient is alert, oriented x 4, not in any form of distress, on room air. Due medications administered and tolerated well. Patient complained of pain on the right hip, given PRN pain medication as ordered with noted relief. Miramontes catheter in place and patent draining clear yellow urine. Turned and reposition every 2 hours. Call light and frequently used items placed within patient's reach.
[2021-08-29 20:52] VITALS: BP 109/47
[2021-08-29] MEDS: DOCUSATE SODIUM 100 MG CAPSULE PO SCH (21:01)
[2021-08-29] MEDS: ATORVASTATIN 20 MG TABLET PO SCH (21:01)
[2021-08-29] MEDS: ENOXAPARIN SODIUM 30 MG/0.3 ML DISP.SYRIN SQ SCH (21:02)
[2021-08-30 04:23] VITALS: BP 123/60
--- NOTE | 2021-08-30 06:48 | NUR ---
Shift End Report: VS stable. No significant event reported all night. All needs attended and met. Continue care as planned.
[2021-08-30] MEDS: LINAGLIPTIN 5 MG TABLET PO SCH (08:18)
[2021-08-30] MEDS: GABAPENTIN 100 MG CAPSULE PO SCH ×2 (08:18→17:18)
[2021-08-30] MEDS: ASPIRIN 81 MG TAB.CHEW PO SCH (08:18)
[2021-08-30] MEDS: FUROSEMIDE 40 MG TABLET PO SCH (08:18)
[2021-08-30] MEDS: FERROUS SULFATE 325 MG TABEC PO SCH (08:18)
[2021-08-30] MEDS: METOPROLOL TARTRATE 25 MG TABLET PO SCH ×2 (08:22→17:17)
[2021-08-30] MEDS: OXYCODONE/APAP 5-325 MG TABLET PO PRN (08:23)
[2021-08-30] MEDS: GLUCERNA SHAKE VANILLA 237 ML CAN PO SCH ×3 (08:25→17:18)
[2021-08-30] MEDS: ARGININE/GLUTAMINE/CALCIUM BMB 1 EACH POWD.PACK PO SCH ×2 (08:25→17:18)
[2021-08-30] MEDS: CLOTRIMAZOLE 1% CREAM 30 GM TUBE TOP SCH ×2 (08:26→17:18)
[2021-08-30 15:59] VITALS: BP 113/65
--- NOTE | 2021-08-30 18:00 | NUR ---
Received a call from Dr. Marcano with order to remove surgical andres, apply steri-strips and keep open to air. [place] removed with no noted signs of infection.
[2021-08-30 20:00] VITALS: BP 133/59
[2021-08-30] MEDS: DOCUSATE SODIUM 100 MG CAPSULE PO SCH (20:23)
[2021-08-30] MEDS: ENOXAPARIN SODIUM 30 MG/0.3 ML DISP.SYRIN SQ SCH (20:24)
[2021-08-31 04:00] VITALS: BP 130/55
[2021-08-31 08:00] VITALS: BP 121/35
[2021-08-31] MEDS: GABAPENTIN 100 MG CAPSULE PO SCH ×2 (08:30→16:05)
[2021-08-31] MEDS: LINAGLIPTIN 5 MG TABLET PO SCH (08:30)
[2021-08-31] MEDS: FUROSEMIDE 40 MG TABLET PO SCH (08:30)
[2021-08-31] MEDS: FERROUS SULFATE 325 MG TABEC PO SCH (08:30)
[2021-08-31] MEDS: ASPIRIN 81 MG TAB.CHEW PO SCH (08:30)
[2021-08-31] MEDS: METOPROLOL TARTRATE 25 MG TABLET PO SCH ×2 (08:31→16:06)
[2021-08-31] MEDS: GLUCERNA SHAKE VANILLA 237 ML CAN PO SCH ×3 (08:31→16:07)
[2021-08-31] MEDS: ARGININE/GLUTAMINE/CALCIUM BMB 1 EACH POWD.PACK PO SCH ×2 (08:31→16:07)
[2021-08-31] MEDS: CLOTRIMAZOLE 1% CREAM 30 GM TUBE TOP SCH ×2 (08:32→16:07)
--- NOTE | 2021-08-31 14:01 | NUR ---
INTERDISCIPLINARY TEAM CONFERENCE
[2021-08-31 16:00] VITALS: BP 125/49
--- NOTE | 2021-08-31 17:25 | NUR ---
called daughter Aneit left message to call back, daughter requested to get update on patient wound status per dr stoner.
--- NOTE | 2021-08-31 18:08 | NUR ---
patient like to sit on chair long time of period, assisted with standing up and relieving the pressure, offered patient go to bed to relieve the pressure, patient refused, risks and benefits explained, patient verbalized the understanding of it. wound care is in progress, continue to monitor
[2021-08-31 20:01] VITALS: BP 117/41
[2021-08-31] MEDS: DOCUSATE SODIUM 100 MG CAPSULE PO SCH (21:03)
[2021-08-31] MEDS: ENOXAPARIN SODIUM 30 MG/0.3 ML DISP.SYRIN SQ SCH (21:04)
[2021-09-01 04:42] VITALS: BP 138/64
[2021-09-01 08:00] VITALS: BP 127/57
[2021-09-01] MEDS: GABAPENTIN 100 MG CAPSULE PO SCH ×2 (08:49→17:03)
[2021-09-01] MEDS: ASPIRIN 81 MG TAB.CHEW PO SCH (08:49)
[2021-09-01] MEDS: OXYCODONE/APAP 5-325 MG TABLET PO PRN (08:50)
[2021-09-01] MEDS: FUROSEMIDE 40 MG TABLET PO SCH (08:50)
[2021-09-01] MEDS: LINAGLIPTIN 5 MG TABLET PO SCH (08:50)
[2021-09-01] MEDS: FERROUS SULFATE 325 MG TABEC PO SCH (08:50)
[2021-09-01] MEDS: METOPROLOL TARTRATE 25 MG TABLET PO SCH ×2 (08:55→17:00)
[2021-09-01] MEDS: CLOTRIMAZOLE 1% CREAM 30 GM TUBE TOP SCH ×2 (08:57→17:54)
[2021-09-01] MEDS: GLUCERNA SHAKE VANILLA 237 ML CAN PO SCH ×3 (08:58→17:54)
[2021-09-01] MEDS: ARGININE/GLUTAMINE/CALCIUM BMB 1 EACH POWD.PACK PO SCH ×2 (08:58→17:54)
--- NOTE | 2021-09-01 15:21 | NUR ---
Patient is alert, Ukrainian speaking, no s/s of distress, cooperative upon assessment and all due meds given per MD order, tolerated well. Wound treatment done as ordered. Call light within reach. All needs met promptly. Will continue to monitor for patient's safety.
[2021-09-01 16:12] VITALS: BP 108/46
[2021-09-01 20:00] VITALS: BP 105/66
[2021-09-01] MEDS: DOCUSATE SODIUM 100 MG CAPSULE PO SCH (20:28)
[2021-09-01] MEDS: ENOXAPARIN SODIUM 30 MG/0.3 ML DISP.SYRIN SQ SCH (20:30)
[2021-09-02 04:00] VITALS: BP 136/53
[2021-09-02 08:00] VITALS: BP 125/52
[2021-09-02] MEDS: GABAPENTIN 100 MG CAPSULE PO SCH ×2 (09:21→17:22)
[2021-09-02] MEDS: LINAGLIPTIN 5 MG TABLET PO SCH (09:21)
[2021-09-02] MEDS: ASPIRIN 81 MG TAB.CHEW PO SCH (09:21)
[2021-09-02] MEDS: FERROUS SULFATE 325 MG TABEC PO SCH (09:21)
[2021-09-02] MEDS: METOPROLOL TARTRATE 25 MG TABLET PO SCH ×2 (09:21→17:23)
[2021-09-02] MEDS: ARGININE/GLUTAMINE/CALCIUM BMB 1 EACH POWD.PACK PO SCH ×2 (09:22→17:23)
[2021-09-02] MEDS: FUROSEMIDE 40 MG TABLET PO SCH (09:22)
[2021-09-02] MEDS: CLOTRIMAZOLE 1% CREAM 30 GM TUBE TOP SCH ×2 (09:23→17:24)
[2021-09-02] MEDS: GLUCERNA SHAKE VANILLA 237 ML CAN PO SCH ×3 (09:23→17:23)
--- NOTE | 2021-09-02 09:34 | NUR ---
WOUND CARE FOLLOW UP: PT SEEN FOR RE-EVALUATION OF SACRAL DEEP TISSUE INJURY(EXTENDING TO BILATERAL BUTTOCKS) PRESENT ON ADMISSION NOW WITH WOUND BED CHANGES NOTED TO INCLUDE YELLOW ADHERENT SLOUGH. SURGICAL CONSULT CALLED TO DR CHAPPELL. RECOMMENDATIONS MADE FOR SKIN PROTECTION AND WOUND CARE TREATMENT ORDERS WERE UPDATED. DISCUSSED WITH NURSING STAFF AND P.T. PT HAS LOW AIRLOSS MATTRESS (FIRST STEP CIRRUS). IN AGREEMENT WITH PLAN OF CARE. Addendum: 09/02/21 at 0937 by PRATEEK GUZMAN RN Amended: Links added.
[2021-09-02 16:00] VITALS: BP 121/58
--- NOTE | 2021-09-02 18:53 | NUR ---
no distress noted, patient turned and repositioned every 2 hours, wound treatment performed as ordered, continue to monitor closely for the wounds.
[2021-09-02] MEDS: DOCUSATE SODIUM 100 MG CAPSULE PO SCH (20:33)
[2021-09-02] MEDS: ENOXAPARIN SODIUM 30 MG/0.3 ML DISP.SYRIN SQ SCH (20:34)
[2021-09-02 20:45] VITALS: BP 121/48
[2021-09-03 04:00] VITALS: BP 122/45
[2021-09-03 07:30] VITALS: BP 120/50
[2021-09-03] MEDS: LINAGLIPTIN 5 MG TABLET PO SCH (08:40)
[2021-09-03] MEDS: FUROSEMIDE 40 MG TABLET PO SCH (08:40)
[2021-09-03] MEDS: ASPIRIN 81 MG TAB.CHEW PO SCH (08:40)
[2021-09-03] MEDS: GABAPENTIN 100 MG CAPSULE PO SCH (08:40)
[2021-09-03] MEDS: FERROUS SULFATE 325 MG TABEC PO SCH (08:40)
[2021-09-03] MEDS: CLOTRIMAZOLE 1% CREAM 30 GM TUBE TOP SCH (08:42)
[2021-09-03] MEDS: GLUCERNA SHAKE VANILLA 237 ML CAN PO SCH ×2 (08:42→13:03)
[2021-09-03] MEDS: ARGININE/GLUTAMINE/CALCIUM BMB 1 EACH POWD.PACK PO SCH (08:42)
[2021-09-03] MEDS: METOPROLOL TARTRATE 25 MG TABLET PO SCH (08:42)
--- NOTE | 2021-09-03 13:00 | NUR ---
Patient seen by Dr. Stern, update given to MD. Dr. Stern gave order for discharge to SNF. Patient is aware and agreeable
[2021-09-03 15:08] VITALS: BP 127/50
--- NOTE | 2021-09-03 15:50 | NUR ---
Discharge instructions provided to the patient and son Dahiana at bedside with verbalized understanding. Discharge papers signed by son. All belongings well accounted for. Vital signs stable. Report given to Yuly SILVERIO from [facility] and endorsed accordingly regarding wound care and ortho follow up. Discharge photos taken. Assisted with her needs. Patient remains alert, oriented x 4, not in any form of distress, on room air. She denies any pain or discomfort. Vital signs stable. Wound dressing change done. Patient picked up by [facility] ambulance, transferred via gurney.
== END 2021-09-03 15:45 | DRG 559 ==
PROVIDERS: ADMIT Physical Medicine & Rehabilitation Pain Medicine; ATTEND Physical Medicine & Rehabilitation Pain Medicine
DX: S72.141D Displaced intertrochanteric fracture of right femur, subsequent encounter for closed fracture with routine healing (principal); E43 Unspecified severe protein-calorie malnutrition; N17.0 Acute kidney failure with tubular necrosis; J15.9 Unspecified bacterial pneumonia; D68.59 Other primary thrombophilia; L97.429 Non-pressure chronic ulcer of left heel and midfoot with unspecified severity; I48.20 Chronic atrial fibrillation, unspecified; N39.0 Urinary tract infection, site not specified; W18.30XD Fall on same level, unspecified, subsequent encounter; D63.8 Anemia in other chronic diseases classified elsewhere; E11.42 Type 2 diabetes mellitus with diabetic polyneuropathy; E11.621 Type 2 diabetes mellitus with foot ulcer; R53.1 Weakness; L97.519 Non-pressure chronic ulcer of other part of right foot with unspecified severity; I11.0 Hypertensive heart disease with heart failure; I50.9 Heart failure, unspecified; I16.0 Hypertensive urgency; M20.41 Other hammer toe(s) (acquired), right foot; M20.42 Other hammer toe(s) (acquired), left foot; M19.90 Unspecified osteoarthritis, unspecified site; K21.9 Gastro-esophageal reflux disease without esophagitis; E66.9 Obesity, unspecified; Z68.32 Body mass index [BMI] 32.0-32.9, adult; F03.90 Unspecified dementia, unspecified severity, without behavioral disturbance, psychotic disturbance, mood disturbance, and anxiety; B96.89 Other specified bacterial agents as the cause of diseases classified elsewhere; Z79.01 Long term (current) use of anticoagulants; Z99.3 Dependence on wheelchair
CPT/HCPCS: 36415; 71045; 73501; 83735; 84100; 84443; 85025; 87086; 97161; A4663; A6209; J1650; J1815; Q0162